=== PATIENT | female | born 1960 | race Caucasian/White ===

== ENCOUNTER 2024-09-07 16:23 | Inpatient (IN) | payer MEDICARE, BC ==
[~2024-09-07] VITALS: Ht 162.6 cm; Wt 61.9 kg
[~2024-09-07 16:23] MED LIST: IBUP-1627 PO
[2024-09-07] MEDS ORDERED: ONDANSETRON 4 MG/2 ML VIAL ONE (19:06)
[2024-09-07] MEDS ORDERED: HYDROMORPHONE 1 MG/1 ML DISP.SYRIN ONE ×2 (19:06→21:03)
[2024-09-07] MEDS ORDERED: LORAZEPAM 2 MG/1 ML VIAL ONE ×2 (19:06→21:36)
[2024-09-07] MEDS: HYDROMORPHONE 1 MG/1 ML DISP.SYRIN IV ONE ×2 (19:16→21:09)
[2024-09-07] MEDS: IV NORMAL SALINE 1000 ML BAG IV ONE (19:17)
[2024-09-07] MEDS: ONDANSETRON 4 MG/2 ML VIAL IV ONE (19:17)
[2024-09-07] MEDS: LORAZEPAM 2 MG/1 ML VIAL IV ONE (19:17)
[2024-09-07 19:28] LABS: BASOPHILS % (AUTO) 0.3 % (0.0-2.0); EOSINOPHILS # (AUTO) 0.1 K/uL (0.0-0.7); EOSINOPHILS % (AUTO) 0.4 % (0.0-7.0); HEMOGLOBIN 11.9 g/dL (10.9-14.3); LYMPHOCYTES # (AUTO) 0.8 K/uL (0.8-4.8); LYMPHOCYTES % (AUTO) 4.5 % (20.5-51.5); MEAN CORPUSCULAR HEMOGLOBIN 29.4 uug (24.7-32.8); MEAN CORPUSCULAR HGB CONC 33 g/dL (32.3-35.6); MEAN CORPUSCULAR VOLUME 88.9 fL (75.5-95.3); MONOCYTES # (AUTO) 0.4 K/uL (0.1-1.30); MONOCYTES % (AUTO) 2.4 % (0.0-11.0); NEUTROPHILS # (AUTO) 16.1 K/uL (1.8-8.9); NEUTROPHILS % (AUTO) 92.4 % (38.5-71.5); PLATELET COUNT (AUTO) 323 K/uL (179-408); RED BLOOD CELL COUNT(AUTO) 4.04 MIL/uL (3.63-4.92); RED CELL DISTRIBUTION WIDTH 15.6 % (12.3-17.7); WHITE BLOOD COUNT (AUTO) 17.5 K/uL (3.8-11.8)
[2024-09-07 19:36] LABS: CALCIUM 9.2 mg/dL (8.5-10.1); CARBON DIOXIDE 22 mmol/L (21-32); CHLORIDE 105 mmol/L (98-107); CREATININE 1.7 mg/dL (0.6-1.3); DIFFERENTIAL COMMENT 1; GLUCOSE 175 mg/dL (74-106); SODIUM SERUM 143 mmol/L (136-145); UREA NITROGEN, BLOOD 14 mg/dL (7-18)
[2024-09-07 19:39] LABS: POTASSIUM 2.5 mmol/L (3.5-5.1)
[2024-09-07 19:42] LABS: ALANINE AMINOTRANSFERASE < 6 U/L (14-59); ALBUMIN 2.6 g/dL (3.4-5.0); ALKALINE PHOSPHATASE 131 U/L (50-136); ASPARTATE AMINOTRANSFERASE 12 U/L (15-37); BILIRUBIN,DIRECT 0.1 mg/dL (0.0-0.2); BILIRUBIN,TOTAL 0.3 mg/dL (0.2-1.0); LIPASE 27 U/L (16-77); TOTAL PROTEIN, SERUM 6.8 g/dL (6.4-8.2)
[2024-09-07] MEDS: IV 0.9% SODIUM CHLORID+ 20 KCL 1,000 ML IV ONE (20:30)
[2024-09-07] MEDS ORDERED: IOHEXOL 300MG/ML 100 ML INFUS..BTL ONE (20:52)
[2024-09-07] MEDS ORDERED: IOHEXOL 300 MG/ML 10 ML VIAL ONE (20:52)
[2024-09-07] MEDS ORDERED: IV 0.9% SODIUM CHLORID+ 20 KCL 1,000 ML ONE (21:03)
[2024-09-07] MEDS ORDERED: POTASSIUM CHLORIDE 20 MEQ POWDER PACKET ONE (22:11)
[2024-09-07] MEDS: POTASSIUM CHLORIDE 20 MEQ POWDER PACKET PO ONE (22:16)
[2024-09-07] MEDS ORDERED: MAGNESIUM HYDROXIDE 30 ML LIQUID UDC PO PRN (23:30)
[2024-09-07] MEDS ORDERED: REMEDY ESSENTIAL ZINC PASTE 113 GM TP PRN (23:30)
[2024-09-07] MEDS ORDERED: ACETAMINOPHEN 325 MG TABLET PO PRN (23:30)
[2024-09-07] MEDS ORDERED: PIPERACILLIN SODIUM/TAZOBACTAM 4.5 G in IV DEXTROSE 5% 50 ML IV SCH (23:30)
[2024-09-08] MEDS ORDERED: PIPERACILLIN/TAZOBACTAM/D5W 50 ML IV ONE ×2 (00:08→04:23)
[2024-09-08] MEDS: IV NS 1000 ML 1,000 ML IV PRN ×2 (02:14→22:30)
[2024-09-08 02:20] VITALS: BP 92/52; TEMP 97.8; O2SAT 99
[2024-09-08] MEDS: PIPERACILLIN SODIUM/TAZOBACTAM 3.375 G in IV DEXTROSE 5% 50 ML IV ONE ×2 (05:17)
[2024-09-08 05:58] VITALS: BP 92/41; TEMP 97.9; O2SAT 99
[2024-09-08 07:02] LABS: BASOPHILS % (AUTO) 0.4 % (0.0-2.0); EOSINOPHILS # (AUTO) 0.1 K/uL (0.0-0.7); EOSINOPHILS % (AUTO) 1.1 % (0.0-7.0); HEMATOCRIT 27.8 % (31.2-41.9); HEMOGLOBIN 9.4 g/dL (10.9-14.3); LYMPHOCYTES # (AUTO) 1.4 K/uL (0.8-4.8); LYMPHOCYTES % (AUTO) 18.1 % (20.5-51.5); MEAN CORPUSCULAR HEMOGLOBIN 30.8 uug (24.7-32.8); MEAN CORPUSCULAR HGB CONC 34 g/dL (32.3-35.6); MEAN CORPUSCULAR VOLUME 90.6 fL (75.5-95.3); MONOCYTES # (AUTO) 0.5 K/uL (0.1-1.30); MONOCYTES % (AUTO) 6.5 % (0.0-11.0); NEUTROPHILS # (AUTO) 5.9 K/uL (1.8-8.9); NEUTROPHILS % (AUTO) 73.9 % (38.5-71.5); PLATELET COUNT (AUTO) 234 K/uL (179-408); RED BLOOD CELL COUNT(AUTO) 3.06 MIL/uL (3.63-4.92); RED CELL DISTRIBUTION WIDTH 15.9 % (12.3-17.7); WHITE BLOOD COUNT (AUTO) 7.9 K/uL (3.8-11.8)
[2024-09-08 07:05] LABS: CALCIUM 8.3 mg/dL (8.5-10.1); CREATININE 1.4 mg/dL (0.6-1.3); MAGNESIUM 1.8 mg/dL (1.8-2.4); PHOSPHOROUS 2.4 mg/dL (2.5-4.9); POTASSIUM 3.5 mmol/L (3.5-5.1)
[2024-09-08 07:29] LABS: DIFFERENTIAL COMMENT 1
[2024-09-08] MEDS: PANTOPRAZOLE SODIUM 40 MG VIAL IV SCH (08:41)
[2024-09-08 10:00] VITALS: O2SAT 98
[2024-09-08] MEDS ORDERED: IV NORMAL SALINE 500 ML BAG IV ONE (11:00)
[2024-09-08] MEDS ORDERED: LETR2.5T PO (11:02)
[2024-09-08] MEDS ORDERED: FLUO20CA36 PO (11:02)
[2024-09-08] MEDS ORDERED: ABEM100T PO (11:02)
[2024-09-08 11:25] VITALS: BP 77/43; TEMP 98.5; O2SAT 98
[2024-09-08] MEDS: IV NORMAL SALINE 500 ML IV ONE ×2 (11:45→21:54)
[2024-09-08] MEDS ORDERED: Medication Not On Formulary EA (Letrozole (Femara) 2.5 MG) PO SCH (12:15)
[2024-09-08] MEDS: FLUOXETINE HCL 20 MG CAPSULE PO SCH (14:18)
[2024-09-08] MEDS: PIPERACILLIN SODIUM/TAZOBACTAM 3.375 G in IV DEXTROSE 5% 100 ML IV SCH (15:02)
[2024-09-08 15:46] VITALS: BP 82/42; TEMP 98.8; O2SAT 94
[2024-09-08] MEDS: NEUTRA PHOS PACKET PO ONE (18:12)
[2024-09-08] MEDS: NICOTINE 14 MG/24HR PATCH TD SCH (21:10)
[2024-09-08] MEDS: ACIDOPHILUS/BULGARICUS CHEW TAB PO SCH (21:11)
[2024-09-08 22:24] VITALS: BP 81/46; TEMP 98.2; O2SAT 100
[2024-09-09 05:14] VITALS: BP 89/41; TEMP 98.1; O2SAT 98
[2024-09-09] MEDS: HYDROCODONE/APAP 10-325 MG TABLET PO PRN (05:40)
[2024-09-09] MEDS: ONDANSETRON 4 MG/2 ML VIAL IV PRN (05:45)
[2024-09-09 06:39] LABS: BASOPHILS % (AUTO) 0.4 % (0.0-2.0); EOSINOPHILS # (AUTO) 0.2 K/uL (0.0-0.7); HEMATOCRIT 30.8 % (31.2-41.9); LYMPHOCYTES # (AUTO) 1.7 K/uL (0.8-4.8); LYMPHOCYTES % (AUTO) 20.4 % (20.5-51.5); MEAN CORPUSCULAR HEMOGLOBIN 29.7 uug (24.7-32.8); MEAN CORPUSCULAR HGB CONC 33 g/dL (32.3-35.6); MEAN CORPUSCULAR VOLUME 91.5 fL (75.5-95.3); MONOCYTES # (AUTO) 0.6 K/uL (0.1-1.30); MONOCYTES % (AUTO) 7.3 % (0.0-11.0); NEUTROPHILS # (AUTO) 5.8 K/uL (1.8-8.9); NEUTROPHILS % (AUTO) 69.9 % (38.5-71.5); PLATELET COUNT (AUTO) 229 K/uL (179-408); RED BLOOD CELL COUNT(AUTO) 3.36 MIL/uL (3.63-4.92); WHITE BLOOD COUNT (AUTO) 8.3 K/uL (3.8-11.8)
[2024-09-09 06:52] LABS: ALBUMIN 2.1 g/dL (3.4-5.0); BILIRUBIN,TOTAL 0.2 mg/dL (0.2-1.0); CALCIUM 8.1 mg/dL (8.5-10.1); CREATININE 1.1 mg/dL (0.6-1.3); POTASSIUM 3.1 mmol/L (3.5-5.1)
[2024-09-09 07:09] LABS: DIFFERENTIAL COMMENT 1
[2024-09-09 08:00] VITALS: BP 79/40; TEMP 99.1
[2024-09-09] MEDS: IV NORMAL SALINE 250 ML IV ONE (10:24)
[2024-09-09 11:47] VITALS: BP 86/47; TEMP 99; O2SAT 98
[2024-09-09] MEDS ORDERED: ACID1TAB4 PO (11:47)
[2024-09-09] MEDS ORDERED: NICO-671 TD (11:47)
[2024-09-09] MEDS ORDERED: AMOX-430 PO (11:47)
[2024-09-09] MEDS ORDERED: PANT40TA2 PO (11:47)
[2024-09-09] MEDS ORDERED: MIDO5TAB5 PO (11:47)
[2024-09-09] MEDS: POTASSIUM CHLORIDE 20 MEQ TAB.PRT.SR PO ONE (11:48)
[2024-09-09 15:07] VITALS: BP 90/48; TEMP 98.8; O2SAT 99
== END 2024-09-09 16:35 | disposition home or self-care (01) | DRG 391 ==
LOC: ER 16:23 → MEDSURG3 23:00
PROVIDERS: ADMIT Internal Medicine; ATTEND Nurse Practitioner Acute Care
DX: A09 Infectious gastroenteritis and colitis, unspecified (principal); N17.0 Acute kidney failure with tubular necrosis; C78.89 Secondary malignant neoplasm of other digestive organs; E44.0 Moderate protein-calorie malnutrition; K52.1 Toxic gastroenteritis and colitis; E86.0 Dehydration; E87.6 Hypokalemia; C50.911 Malignant neoplasm of unspecified site of right female breast; Z79.899 Other long term (current) drug therapy; F17.210 Nicotine dependence, cigarettes, uncomplicated; E88.09 Other disorders of plasma-protein metabolism, not elsewhere classified; E78.5 Hyperlipidemia, unspecified; F41.9 Anxiety disorder, unspecified; T45.1X5A Adverse effect of antineoplastic and immunosuppressive drugs, initial encounter; Y92.89 Other specified places as the place of occurrence of the external cause; I10 Essential (primary) hypertension
CPT/HCPCS: 36415; 71045; 83690; 83735; 84100; 85025; A4663; G0378; J1171; J2060; J2405; J2470; J2543; J7040; Q9967